=== PATIENT | male | born 1995 | race Caucasian/White ===

== ENCOUNTER 2016-11-23 14:23 | Emergency (ER) | payer OTHER ==
[2016-11-23] MEDS ORDERED: AUGMENTIN 875 MG TAB As Ordered ONE (16:24)
--- NOTE | 2016-11-23 17:07 | EDDOCDS ---
Physician Documentation [facility] Name: Kai Beasley Age: 21 yrs Sex: Male : 1995 Arrival Date: 11/23/2016 Time: 14:23 Bed TR8 Private MD: Unknown Pcp Disposition: 11/23/16 16:19 Discharged to Home/Self Care. Impression: Dental caries, unspecified. - Condition is Stable. - Prescriptions for Augmentin 875- 125 mg Oral Tablet - take 1 tablet by ORAL route every 12 hours for 10 days; 20 tablet. - Medication Reconciliation, Local Pharmacy Hours form. - Follow up: Emergency Department; When: As needed; Reason: Worsening of conditions. Follow up: Your, Dentist; When: 2 - 3 days; Reason: Continuance of care. - Problem is an acute exacerbation. - Symptoms have worsened. Historical: - Allergies: no known allergies; - Home Meds: 1. none - PMHx: none; - PSHx: Appendectomy; Hernia repair; - Social history: Smoking status: Patient uses tobacco products, current every day smoker. No barriers to communication noted, The patient speaks fluent Maltese. - Family history: Not pertinent. - : The pt / caregiver states he / she is not on anticoagulants. Home medication list is obtained from the patient. - Exposure Risk Screening:: None identified. Vital Signs: 11/23 14:25 BP 147 / 78; Pulse 86; Resp 18 S; Temp 98.0; Pulse Ox 98% on R/A; Weight 72.57 kg / dd6 159.99 lbs (R); Height 5 ft. 8 in. (172.72 cm) (R); 16:32 BP 130 / 78 RA Sitting (auto/reg); Pulse 65; Resp 18; Temp 99.2(TE); Pulse Ox 99% on rs6 R/A; Pain 0/10; 14:25 Body Mass Index 24.33 (72.57 kg, 172.72 cm) dd6 MDM: 16:18 Amoxicillin-Clavulanate 875 mg 1 tabs PO once ordered. jk8 Administered Medications: 16:32 Drug: Amoxicillin-Clavulanate 1 tabs [amoxicillin 875 mg-potassium clavulanate 125 mg ttb tablet (1 tabs)] Route: PO; Signatures: Kasey Randle RN RN ttb Shaniqua Kennedy RN RN ms18 Bryan Null, SHANA SALDANA jk8 MTDD
--- NOTE | 2016-11-23 17:07 | EDDOCDS ---
Nurse's Notes [facility] Name: Kai Beasley Age: 21 yrs Sex: Male : 1995 Arrival Date: 11/23/2016 Time: 14:23 Bed TR8 Private MD: Unknown Pcp Diagnosis: Dental caries, unspecified Presentation: 11/23 14:48 Presenting complaint: Patient states: that he has bilateral tooth pain for the past 2-3 ms18 days. Adult Sepsis Screening: The patient does not have new or worsening altered mentation. Patient's respiratory rate is less than 22. Systolic blood pressure is greater than 100. Patient has a qSOFA score of 0- Negative Sepsis Screen. Suicide/Homicide risk assessment- the patient denies having any suicidal and/or homicidal ideations and does not present with any other emotional, behavioral or mental health complaints. Status: Patient is not a service sprinkler helper or dependent. Transition of care: patient was not received from another setting of care. 14:48 Acuity: DARIEN Level 4 ms18 14:48 Method Of Arrival: Walkin/Carried/Asstd ms18 Triage Assessment: 14:50 General: Appears in no apparent distress, comfortable, Behavior is appropriate for age, ms18 cooperative. Pain: Location: mouth Pain currently is 8 out of 10 on a pain scale. HIV screening NA for this visit Offered previously. Neurological: No deficits noted. EENT: Reports pain in mouth. Respiratory: No deficits noted. Derm: Skin is pink, warm & dry. Historical: - Allergies: no known allergies; - Home Meds: 1. none - PMHx: none; - PSHx: Appendectomy; Hernia repair; - Social history: Smoking status: Patient uses tobacco products, current every day smoker. No barriers to communication noted, The patient speaks fluent Greenlandic. - Family history: Not pertinent. - : The pt / caregiver states he / she is not on anticoagulants. Home medication list is obtained from the patient. - Exposure Risk Screening:: None identified. Screenin:20 Screening information is obtained from the patient. Fall risk: No risks identified. ttb Assistance ADL's: requires no assistance with activities of daily living. Abuse/DV Screen: The patient / caregiver reports he/she is: not in a situation that causes fear, pain or injury. Nutritional screening: No deficits noted. Advance Directives: Currently, there is no health care proxy. home support is adequate. Assessment: 16:20 General: Appears in no apparent distress, uncomfortable, well nourished, well groomed, ttb Behavior is appropriate for age, cooperative, pleasant. Pain: Location: bilat molars. Neurological: Level of Consciousness is awake, alert. Cardiovascular: Chest pain is denied. Respiratory: No deficits noted. Airway is patent Respiratory effort is even, unlabored, Denies cough, shortness of breath. GI: Denies nausea, vomiting, pain. Derm: Skin is normal. Vital Signs: 14:25 BP 147 / 78; Pulse 86; Resp 18 S; Temp 98.0; Pulse Ox 98% on R/A; Weight 72.57 kg (R); dd6 Height 5 ft. 8 in. (172.72 cm) (R); 16:32 BP 130 / 78 RA Sitting (auto/reg); Pulse 65; Resp 18; Temp 99.2(TE); Pulse Ox 99% on rs6 R/A; Pain 0/10; 14:25 Body Mass Index 24.33 (72.57 kg, 172.72 cm) dd6 Vitals: 14:25 Log In Time: November 23, 2016 at 14:23. dd6 ED Course: 14:24 Patient visited by Kaden Akins PCA. dd6 14:24 Unknown Pcp is Private Physician. dd6 14:24 Patient moved to Waiting dd6 14:26 Patient moved to Pre RCE dd6 14:49 Triage Initiated ms18 15:46 Patient moved to Triage 3 jmb 16:03 Bryan Null PA-C is PHCP. jk8 16:03 Jocelynn Varela MD is Attending Physician. jk8 16:03 Patient visited by Bryan Null PA-C. jk8 16:18 Your, Dentist is Referral Physician. jk8 16:20 The patient / caregiver is instructed regarding the plan of care and ED course. Patient ttb has correct armband on for positive identification. 16:20 No IV's were initiated during this patient's visit. No procedures done that require ttb assistance. 16:33 Patient visited by Elizabeth Escalera PCA. rs6 16:33 Patient moved to TR3 rs6 16:35 Patient moved to TR8 ttb Administered Medications: 16:32 Drug: Amoxicillin-Clavulanate 1 tabs [amoxicillin 875 mg-potassium clavulanate 125 mg ttb tablet (1 tabs)] Route: PO; Order Results: There are currently no results for this order. Outcome: 16:19 Discharge ordered by Provider. jk8 16:20 Discharge Assessment: Patient awake, alert and oriented x 3. No cognitive and/or ttb functional deficits noted. Patient verbalized understanding of disposition instructions. Patient awake and alert. patient administered narcotics - no. The following High Risk Discharge criteria are identified: None. Discharged to home ambulatory. Condition: good Condition: stable Condition: improved. Discharge instructions given to patient, Instructed on discharge instructions, follow up and referral plans. medication usage, Demonstrated understanding of instructions, medications, Pt was receptive of discharge instructions/ teaching. Prescriptions given X 2. No special radiology studies were completed. Property :Personal belongings accompany Pt. 17:06 Patient left the ED. ms18 Signatures: Kaden Akins, SURGICAL NURSE PRACTITIONER SURGICAL NURSE PRACTITIONER dd6 Kasey Randle RN RN Floyd KapoorRN RN Shaniqua Quarles RN RN ms18 Elizabeth Escalera, SURGICAL NURSE PRACTITIONER SURGICAL NURSE PRACTITIONER rs6 Bryan Null PA-C PA-C jk8 MTDD
--- NOTE | 2016-11-25 18:07 | EDDOCDS ---
Nurse's Notes [facility] Name: Kai Beasley Age: 21 yrs Sex: Male : 1995 Arrival Date: 11/23/2016 Time: 14:23 Bed TR8 Private MD: Unknown Pcp Diagnosis: Dental caries, unspecified Presentation: 11/23 14:48 Presenting complaint: Patient states: that he has bilateral tooth pain for the past 2-3 ms18 days. Adult Sepsis Screening: The patient does not have new or worsening altered mentation. Patient's respiratory rate is less than 22. Systolic blood pressure is greater than 100. Patient has a qSOFA score of 0- Negative Sepsis Screen. Suicide/Homicide risk assessment- the patient denies having any suicidal and/or homicidal ideations and does not present with any other emotional, behavioral or mental health complaints. Status: Patient is not a assistant customer service manager or dependent. Transition of care: patient was not received from another setting of care. 14:48 Acuity: DARIEN Level 4 ms18 14:48 Method Of Arrival: Walkin/Carried/Asstd ms18 Triage Assessment: 14:50 General: Appears in no apparent distress, comfortable, Behavior is appropriate for age, ms18 cooperative. Pain: Location: mouth Pain currently is 8 out of 10 on a pain scale. HIV screening NA for this visit Offered previously. Neurological: No deficits noted. EENT: Reports pain in mouth. Respiratory: No deficits noted. Derm: Skin is pink, warm & dry. Historical: - Allergies: no known allergies; - Home Meds: 1. none - PMHx: none; - PSHx: Appendectomy; Hernia repair; - Social history: Smoking status: Patient uses tobacco products, current every day smoker. No barriers to communication noted, The patient speaks fluent Yoruba. - Family history: Not pertinent. - : The pt / caregiver states he / she is not on anticoagulants. Home medication list is obtained from the patient. - Exposure Risk Screening:: None identified. Screenin:20 Screening information is obtained from the patient. Fall risk: No risks identified. ttb Assistance ADL's: requires no assistance with activities of daily living. Abuse/DV Screen: The patient / caregiver reports he/she is: not in a situation that causes fear, pain or injury. Nutritional screening: No deficits noted. Advance Directives: Currently, there is no health care proxy. home support is adequate. Assessment: 16:20 General: Appears in no apparent distress, uncomfortable, well nourished, well groomed, ttb Behavior is appropriate for age, cooperative, pleasant. Pain: Location: bilat molars. Neurological: Level of Consciousness is awake, alert. Cardiovascular: Chest pain is denied. Respiratory: No deficits noted. Airway is patent Respiratory effort is even, unlabored, Denies cough, shortness of breath. GI: Denies nausea, vomiting, pain. Derm: Skin is normal. Vital Signs: 14:25 BP 147 / 78; Pulse 86; Resp 18 S; Temp 98.0; Pulse Ox 98% on R/A; Weight 72.57 kg (R); dd6 Height 5 ft. 8 in. (172.72 cm) (R); 16:32 BP 130 / 78 RA Sitting (auto/reg); Pulse 65; Resp 18; Temp 99.2(TE); Pulse Ox 99% on rs6 R/A; Pain 0/10; 14:25 Body Mass Index 24.33 (72.57 kg, 172.72 cm) dd6 Vitals: 14:25 Log In Time: November 23, 2016 at 14:23. dd6 ED Course: 14:24 Patient visited by Kaden Aikns PCA. dd6 14:24 Unknown Pcp is Private Physician. dd6 14:24 Patient moved to Waiting dd6 14:26 Patient moved to Pre RCE dd6 14:49 Triage Initiated ms18 15:46 Patient moved to Triage 3 jmb 16:03 Bryan Null PA-C is PHCP. jk8 16:03 Jocelynn Varela MD is Attending Physician. jk8 16:03 Patient visited by Bryan Null PA-C. jk8 16:18 Your, Dentist is Referral Physician. jk8 16:20 The patient / caregiver is instructed regarding the plan of care and ED course. Patient ttb has correct armband on for positive identification. 16:20 No IV's were initiated during this patient's visit. No procedures done that require ttb assistance. 16:33 Patient visited by Elizabeth Escalera PCA. rs6 16:33 Patient moved to TR3 rs6 16:35 Patient moved to TR8 ttb 11/24 08:50 T-Sheet-- Draft Copy was scanned into [employer] and attached to record. [facility] Administered Medications: 11/23 16:32 Drug: Amoxicillin-Clavulanate 1 tabs [amoxicillin 875 mg-potassium clavulanate 125 mg ttb tablet (1 tabs)] Route: PO; Order Results: There are currently no results for this order. Outcome: 16:19 Discharge ordered by Provider. jk8 16:20 Discharge Assessment: Patient awake, alert and oriented x 3. No cognitive and/or ttb functional deficits noted. Patient verbalized understanding of disposition instructions. Patient awake and alert. patient administered narcotics - no. The following High Risk Discharge criteria are identified: None. Discharged to home ambulatory. Condition: good Condition: stable Condition: improved. Discharge instructions given to patient, Instructed on discharge instructions, follow up and referral plans. medication usage, Demonstrated understanding of instructions, medications, Pt was receptive of discharge instructions/ teaching. Prescriptions given X 2. No special radiology studies were completed. Property :Personal belongings accompany Pt. 17:06 Patient left the ED. ms18 Signatures: Kaden Akins, GUIDE DOG INSTRUCTOR GUIDE DOG INSTRUCTOR dd6 Kasey Randle RN RN Floyd Kapoor RN RN Shaniqua Quarles,THEODORA RN ms18 Elizabeth Escalera, GUIDE DOG INSTRUCTOR GUIDE DOG INSTRUCTOR rs6 Bryan Null PA-C PA-C jk8 Hoffert, Sarah seh Chart Complete MTDD
--- NOTE | 2016-11-25 18:07 | EDDOCDS ---
Physician Documentation [facility] Name: Kai Beasley Age: 21 yrs Sex: Male : 1995 Arrival Date: 11/23/2016 Time: 14:23 Bed TR8 Private MD: Unknown Pcp Disposition: 11/23/16 16:19 Discharged to Home/Self Care. Impression: Dental caries, unspecified. - Condition is Stable. - Prescriptions for Augmentin 875- 125 mg Oral Tablet - take 1 tablet by ORAL route every 12 hours for 10 days; 20 tablet. - Medication Reconciliation, Local Pharmacy Hours form. - Follow up: Emergency Department; When: As needed; Reason: Worsening of conditions. Follow up: Your, Dentist; When: 2 - 3 days; Reason: Continuance of care. - Problem is an acute exacerbation. - Symptoms have worsened. Historical: - Allergies: no known allergies; - Home Meds: 1. none - PMHx: none; - PSHx: Appendectomy; Hernia repair; - Social history: Smoking status: Patient uses tobacco products, current every day smoker. No barriers to communication noted, The patient speaks fluent Sao [place]. - Family history: Not pertinent. - : The pt / caregiver states he / she is not on anticoagulants. Home medication list is obtained from the patient. - Exposure Risk Screening:: None identified. Vital Signs: 11/23 14:25 BP 147 / 78; Pulse 86; Resp 18 S; Temp 98.0; Pulse Ox 98% on R/A; Weight 72.57 kg / dd6 159.99 lbs (R); Height 5 ft. 8 in. (172.72 cm) (R); 16:32 BP 130 / 78 RA Sitting (auto/reg); Pulse 65; Resp 18; Temp 99.2(TE); Pulse Ox 99% on rs6 R/A; Pain 0/10; 14:25 Body Mass Index 24.33 (72.57 kg, 172.72 cm) dd6 MDM: 16:18 Amoxicillin-Clavulanate 875 mg 1 tabs PO once ordered. jk8 11/24 08:50 T-Sheet-- Draft Copy was scanned into [employer] and attached to record. seh Administered Medications: 11/23 16:32 Drug: Amoxicillin-Clavulanate 1 tabs [amoxicillin 875 mg-potassium clavulanate 125 mg ttb tablet (1 tabs)] Route: PO; Signatures: Kasey Randle RN RN ttb Shaniqua Kennedy RN RN ms18 Bryan Null PA-C PA-C jk8 Jocelynn Barrow The chart was reviewed and I authenticate all verbal orders and agree with the evaluation and treatment provided.Attachments: 11/24 08:50 T-Sheet-- Draft Copy [facility] Chart Complete MTDD
--- NOTE | 2016-11-25 18:07 | EDDOCDS ---
Physician Documentation [facility] Name: Kai Beasley Age: 21 yrs Sex: Male : 1995 Arrival Date: 11/23/2016 Time: 14:23 Bed TR8 Private MD: Unknown Pcp Disposition: 11/23/16 16:19 Discharged to Home/Self Care. Impression: Dental caries, unspecified. - Condition is Stable. - Prescriptions for Augmentin 875- 125 mg Oral Tablet - take 1 tablet by ORAL route every 12 hours for 10 days; 20 tablet. - Medication Reconciliation, Local Pharmacy Hours form. - Follow up: Emergency Department; When: As needed; Reason: Worsening of conditions. Follow up: Your, Dentist; When: 2 - 3 days; Reason: Continuance of care. - Problem is an acute exacerbation. - Symptoms have worsened. Historical: - Allergies: no known allergies; - Home Meds: 1. none - PMHx: none; - PSHx: Appendectomy; Hernia repair; - Social history: Smoking status: Patient uses tobacco products, current every day smoker. No barriers to communication noted, The patient speaks fluent Italian. - Family history: Not pertinent. - : The pt / caregiver states he / she is not on anticoagulants. Home medication list is obtained from the patient. - Exposure Risk Screening:: None identified. Vital Signs: 11/23 14:25 BP 147 / 78; Pulse 86; Resp 18 S; Temp 98.0; Pulse Ox 98% on R/A; Weight 72.57 kg / dd6 159.99 lbs (R); Height 5 ft. 8 in. (172.72 cm) (R); 16:32 BP 130 / 78 RA Sitting (auto/reg); Pulse 65; Resp 18; Temp 99.2(TE); Pulse Ox 99% on rs6 R/A; Pain 0/10; 14:25 Body Mass Index 24.33 (72.57 kg, 172.72 cm) dd6 MDM: 16:18 Amoxicillin-Clavulanate 875 mg 1 tabs PO once ordered. jk8 11/24 08:50 T-Sheet-- Draft Copy was scanned into [employer] and attached to record. seh Administered Medications: 11/23 16:32 Drug: Amoxicillin-Clavulanate 1 tabs [amoxicillin 875 mg-potassium clavulanate 125 mg ttb tablet (1 tabs)] Route: PO; Signatures: Kasey Randle RN RN ttb Shaniqua Kennedy RN RN ms18 Bryan Null PA-C PA-C jk8 Jocelynn Barrow The chart was reviewed and I authenticate all verbal orders and agree with the evaluation and treatment provided.Attachments: 11/24 08:50 T-Sheet-- Draft Copy [facility] Chart Complete MTDD
== END 2016-11-23 17:06 | disposition home or self-care (01) ==
LOC: M ED 14:23
DX: K02.9 Dental caries, unspecified (principal); Z90.89 Acquired absence of other organs; F17.200 Nicotine dependence, unspecified, uncomplicated

== ENCOUNTER → 2020-06-03 | Emergency (ER) | payer OTHER ==
[~2020-06-03] MED LIST: ACETAMINOPHEN 500 MG TAB ONE
== END | disposition left against medical advice (07) ==
LOC: M ED
DX: S76.111A Strain of right quadriceps muscle, fascia and tendon, initial encounter (principal); W01.0XXA Fall on same level from slipping, tripping and stumbling without subsequent striking against object, initial encounter; Y92.018 Other place in single-family (private) house as the place of occurrence of the external cause

== ENCOUNTER → 2021-12-21 | Outpatient (CLI) | payer OTHER | LOC: M OUTALCOH 08:42 | PROVIDERS: ATTEND Psychiatry & Neurology Psychiatry | DX: Z13.39 Encounter for screening examination for other mental health and behavioral disorders (principal) ==